=== PATIENT | female | born 1935 | race Caucasian/White ===

== ENCOUNTER 2016-05-16 16:35 | Emergency (ER) | payer MEDICARE ==
[2016-05-16 17:45] LABS: BASOPHILS 0.4 % (0.0-2.0); EOSINOPHILS 0.8 % (0-7); HEMATOCRIT 42.2 % (36.0-48.0); HEMOGLOBIN 13.6 g/dL (12-16); IMMATURE GRANULOCYTES 0.2 % (0-5); LYMPHOCYTES 20.6 % (15-50); MCH 30.5 pg (26.0-34.0); MCHC 32.2 g/dL (31.0-37.0); MCV 94.6 fL (80.0-100.0); MEAN PLATELET VOLUME 10.2 fL (7.4-10.4); MONOCYTES 7.8 % (2-11); NEUTROPHILS 70.2 % (40-80); PLATELET COUNT 182 10x3/uL (130-400); RBC 4.46 10x6/uL (4.00-5.40); RDW 13.4 % (11.5-14.5); WBC 5.1 10x3/uL (4.8-10.8)
[2016-05-16 18:15] LABS: ALBUMIN 3.7 g/dL (3.4-5.0); ANION GAP 11.5 mmol/L (8-16); BILIRUBIN - TOTAL 0.31 mg/dL (0.2-1.3); CALCIUM 8.2 mg/dL (8.5-10.1); CARBON DIOXIDE 32.3 mmol/L (21.0-32.0); CREATININE - SERUM 0.8 mg/dL (0.6-1.3); POTASSIUM - SERUM 3.8 mmol/L (3.5-5.1)
[2016-05-16 18:38] LABS: APPEARANCE CLEAR (CLEAR); BILIRUBIN NEGATIVE (NEGATIVE); COLOR STRAW (YELLOW); GLUCOSE NEGATIVE (NEGATIVE); KETONE NEGATIVE (NEGATIVE); LEUKOCYTE ESTERASE NEGATIVE (NEGATIVE); NITRITE NEGATIVE (NEGATIVE); PROTEIN NEGATIVE (NEGATIVE); UROBILINOGEN NORMAL (NORMAL)
== END 2016-05-16 19:38 | disposition home or self-care (01) ==
LOC: D.ER 16:35
PROVIDERS: Emergency Medicine
DX: E86.0 Dehydration (principal); R55 Syncope and collapse; I48.91 Unspecified atrial fibrillation; E03.9 Hypothyroidism, unspecified; I45.4 Nonspecific intraventricular block